=== PATIENT | male | born 1970 | race Hispanic/Latino ===

== ENCOUNTER 2024-03-30 09:51 | Emergency (ER) | payer BC ==
[~2024-03-30] VITALS: Ht 315 cm; Wt 65.8 kg
[~2024-03-30 09:51] MED LIST: AUGMENTIN 875-1 EACH PO; GLIPIZIDE5 MG PO; METFORMIN HCL500 MG PO
[2024-03-30 10:39] LABS: BASOPHILS % 0.5 % (0.0-1.0); EOSINOPHILS % 0.1 % (0.0-6.0); HEMATOCRIT 43.9 % (38.2-49.6); LYMPHOCYTES # (AUTO) 0.7 (1.0-3.2); LYMPHOCYTES % 9.3 % (18.0-39.1); MEAN CORPUSCULAR HEMOGLOBIN 29.6 pg (28-32); MEAN CORPUSCULAR HGB CONC 34.2 g/dL (31-35); MEAN CORPUSCULAR VOLUME 86.6 fL (81-99); MONOCYTES % 13.5 % (4.4-11.3); NEUTROPHILS # (AUTO) 5.8 (2.1-6.9); NEUTROPHILS % 75.4 % (38.7-80.0); PLATELET COUNT 207 x10e3/uL (140-360); RED BLOOD COUNT 5.07 x10e6/uL (4.3-5.7); RED CELL DISTRIBUTION WIDTH 12.8 % (11.7-14.4); WHITE BLOOD COUNT 7.72 x10e3/uL (4.8-10.8)
[2024-03-30] MEDS: ONDANSETRON HCL INJ 2MG/ML 2ML 2 MG/ML VIAL IV STA (10:43)
[2024-03-30] MEDS: SODIUM CHLORIDE 0.9% 1000ML 1,000 ML IV STA (10:43)
[2024-03-30] MEDS: ACETAMINOPHEN 325 MG TAB PO ONE (10:43)
[2024-03-30 11:01] LABS: COLOR,URINE YELLOW (YELLOW)
[2024-03-30 11:02] LABS: INR 0.95; PROTHROMBIN TIME 13.4 seconds (11.9-14.5)
[2024-03-30 11:03] LABS: BILIRUBIN,URINE NEGATIVE (NEGATIVE); CLARITY,URINE CLEAR (CLEAR); GLUCOSE, URINE 500 (NEGATIVE); KETONES,URINE NEGATIVE (NEGATIVE); LEUKOCYTE ESTERASE ,URINE NEGATIVE (NEGATIVE); NITRITE,URINE NEGATIVE (NEGATIVE); PH,URINE 5.5 (5 - 7); PROTEIN,URINE DIPSTICK NEGATIVE (NEGATIVE); URINE UROBILINOGEN 0.2 mg/dL (0.2 - 1)
[2024-03-30 11:03] LABS: PARTIAL THROMBOPLASTIN TIME 29.4 seconds (23.8-35.5)
[2024-03-30 11:13] LABS: ALANINE AMINOTRANSFERASE 21 IU/L (0-55); ALBUMIN/GLOBULIN RATIO 1.4 (0.8-2.0); ALKALINE PHOSPHATASE 71 IU/L (40-150); ANION GAP 16.9 mmol/L (8-16); BLOOD UREA NITROGEN 18 mg/dL (7-26); BUN/CREATININE RATIO 17 (6-25); CALCIUM 9.6 mg/dL (8.4-10.2); CARBON DIOXIDE 19 mmol/L (22-29); CHLORIDE 104 mmol/L (98-107); CREATINE KINASE 72 IU/L (30-200); CREATININE, SERUM 1.09 mg/dL (0.72-1.25); EST GLOMERULAR FILTRATION RATE 82 ML/MIN (>=60); GLUCOSE 185 mg/dL (74-118); MAGNESIUM 1.5 MG/DL (1.3-2.1); POTASSIUM 3.9 mmol/L (3.5-5.1); SODIUM 136 mmol/L (136-145); TOTAL PROTEIN 6.9 g/dL (6.5-8.1)
[2024-03-30 11:19] LABS: RBC,URINE 0-5 /HPF (0-5); WBC,URINE (MAN) 0-5 /HPF (0-5)
[2024-03-30] MEDS: IBUPROFEN 600 MG TAB PO STA (11:19)
[2024-03-30 11:20] LABS: BACTERIA,URINE FEW /HPF; EPITHELIAL CELLS,URINE FEW /LPF
[2024-03-30 11:20] LABS: TROPONIN I < 0.001 ng/mL (0-0.300)
[2024-03-30 11:21] LABS: INFLUENZAE A&B ANTIGEN (RAPID) NEGATIVE (NEGATIVE); RESPIRATORY SYNC. VIRUS NEGATIVE (NEGATIVE)
[2024-03-30 11:23] VITALS: TEMP 99.4
[2024-03-30 12:30] VITALS: PULSE 98; RESP 16
[2024-03-30 13:05] VITALS: BP 152/69; PULSE 96; RESP 18; TEMP 99.1; O2SAT 99
== END 2024-03-30 13:05 | disposition home or self-care (01) ==
LOC: ER 09:58
DX: R50.9 Fever, unspecified (principal); U07.1 COVID-19; R53.81 Other malaise; E11.65 Type 2 diabetes mellitus with hyperglycemia; I10 Essential (primary) hypertension; E78.5 Hyperlipidemia, unspecified
CPT/HCPCS: 36415; 71045; 80053; 81001; 82550; 83605; 83735; 84484; 85025; 85610; 85730; 87040; 87086; 87400; 87420; 93005; 99284; J2405; J7030; U0002